=== PATIENT | female | born 1985 | race Caucasian/White ===

== ENCOUNTER 2024-03-21 07:51 | Emergency (ER) | payer OTHER, SELFPAY ==
[2024-03-21 07:55] VITALS: BP 159/87; PULSE 75; RESP 18; TEMP 36.8; O2SAT 97; BMI 30.9
[2024-03-21 08:00] VITALS: BP 159/87; PULSE 75; RESP 18; TEMP 36.8; O2SAT 97
--- NOTE | 2024-03-21 08:17 | XRR_ITS ---
PROCEDURE INFORMATION: Exam: XR Chest Exam date and time: 03/21/2024 8:25 AM Age: 38 years old Clinical indication: Cough and dyspnea; Additional info: Dyspnea/cough TECHNIQUE: Imaging protocol: Radiologic exam of the chest. Views: 1 view. COMPARISON: No relevant prior studies available. FINDINGS: Lungs: Unremarkable. No consolidation. Pleural spaces: Unremarkable. No pleural effusion. No pneumothorax. Heart/Mediastinum: Unremarkable. No cardiomegaly. Bones/joints: Unremarkable. XR/XR chest 1V portable [id number] IMPRESSION: No acute findings.
--- NOTE | 2024-03-21 08:17 | CT_ITS ---
WS: [id number] CT NECK TECHNIQUE: Contrast-enhanced CT of the neck with coronal and sagittal reformatted images. CLINICAL INFORMATION: Dental abscess with submandibular swelling COMPARISON: None. DLP: 255.[address] scans at [facility] use at least one of these dose optimization techniques: automated e xposure control; mA and/or kV adjustment per patient size (includes targeted exams where dose is matc hed to clinical indication); or iterative reconstruction. FINDINGS: Inflammatory stranding and edema in the floor of the mouth and about the LEFT mandible compatible wit h odontogenic cellulitis. No evidence of drainable abscess or fluid collection. Enhancing enlarged LE FT submandibular and LEFT perimandibular lymph nodes. Periapical lucency about a LEFT posterior molar . Periapical lucency about a RIGHT posterior molar. Normal posterior nasopharynx. Normal tonsils. No evidence of retropharyngeal abscess or fluid collect ion. Normal thyroid. Lung apices are well aerated. Straightening with slight reversal normal cervical lordosis. Moderate spondylitic changes cervical sp ine. CT/CT neck w con* [id number] IMPRESSION: 1. Inflammatory stranding and edema about the LEFT mandible compatible with ce llulitis. No evidence of drainable abscess or fluid collection. 2. Multiple enlarged enhancing lymph nodes in the LEFT submandibular space and about the angle of the mandible likely reactive. Recommend follow-up to resolu tion. 3. Inflammatory stranding and edema in the submandibular space and the floor o f the mouth. 4. Periapical lucency involving a LEFT posterior molar. No evidence of osteomy elitis. Notified Clay Johnson DO at 03/21/2024 9:58 AM.
--- NOTE | 2024-03-21 08:18 | ED_ITS ---
HPI - Dental/Oral 2 General: Chief complaint: Dental/Oral Stated complaint: mouth pain Time Seen by Provider: 03/21/24 08:05 Source: patient Mode of arrival: ambulatory History of Present Illness: 38-year-old female presents emergency ro om complaining of dental pain that began a couple of days ago. She is taken some amoxicillin she had available from her previous prescription. She has difficulty with chewing and swallowing overnight. Some swelling in the submandibular area. She denies vomiting or diarrhea subjective fever but not measured. Dysphagia. No stridor. Initial dental pain started on the left mandible. MD Complaint: tooth pain Teeth map: 1. Onset (ago): day(s) Associated symptoms: Denies fever(s) Review of Systems 2 Const: Denies: fever(s) or chills Card: Denies: chest pain Resp: Denies: dyspnea GI: Denies: abdominal pain : Denies: dysuria, urinary frequency or urinary urgency Musc: Denies: neck pain or back pain Skin/Breast: Denies: rash Physical Exam 2 Const: GENERAL APPEARANCE: cooperative and comfortable O RIENTATION/CONSCIOUSNESS: Yes awake, Yes oriented to person, Yes oriented to place and Yes oriented to time HENMT: COMMON NORMALS: hearing grossly normal bilaterally OTHER: Noticeable swelling in the submandibular space slightly more prominent on the left. Overlying skin is slightly reddened. Few cervical lymph nodes palpable. No stridor. Infected teeth of the premolar and molar. No active drainage there is swelling along the gumline. Teeth are eroded off to the level of the gumline. Resp: COMMON NORMALS: normal respiratory effort, No retractions, No use of accessory muscles and clear to auscultation bilaterally AUSCULTATION: clear to auscultation bilaterally Cardio: COMMON NORMALS: regular rate, regular rhythm and No murmurs present (Cardio) RATE: regular rate RHYTHM: regular rhythm GI: COMMON NORMALS: Soft to palpation and No hepatosplenomegaly present A USCULTATION: Yes normoactive bowel sounds PALPATION: Yes Soft to palpation, No Tenderness to palpation present (GI), No Guarding due to palpation present (GI) and Yes No hepatosplenomegaly present Extremity: COMMON NORMALS: normal to inspection, capillary refill normal, no clubbing, cyanosis or edema, no calf tenderness and no pedal edema Neuro: SENSORIUM/ORIENTATION: Yes oriented to person, Yes oriented to place and Yes oriented to time Skin: COMMON NORMALS: no rashes or lesions noted GENERAL SKIN EXAM: no rashes or lesions noted Course 2 Vital Signs: Vital signs: Vital Signs Temperature 98.2 F 03/21/24 08:00 Pulse Rate 82 03/21/24 12:15 Respiratory Rate 20 H 03/21/24 12:04 Blood Pressure 159/87 03/21/24 08:00 Pulse Oximetry 100 03/21/24 12:15 Oxygen Delivery Me thod Room Air 03/21/24 10:16 MDM - Dental/Oral Medical Decision Making Patient does have some swelling around the left side of the mandible and inferiorly. CT this soft tissues of the neck with IV contrast there is reactive lymph nodes but no delineated abscess. There is a lot of cellulitis most likely a dental genic at its source. There is no submandibular space invasion or abscess. Reviewed with radiologist. White count is elevated at 15. She was given a dose of Zosyn here. Will discharge patient from the ER and she will proceed directly to oral maxillary facial surgery. Talk to Dr. Interiano he recommended that he see her today and he can address the tooth issue that is present. The patient was asked not to eat or drink anything thing until she had seen Dr. Interiano. IV was left in place so that could be used for what ever procedures they do. Return if has further problems we did send in Augmentin and hydrocodone for her. Differential Diagnosis Likely dental caries Medical Records I reviewed the patient's medical records. Lab Data I reviewed the patient's lab results. 03/21/24 08:57 03/21/24 09:41 Radiology Impressions Chest X-Ray 03/21/24 08:17 IMPRESSION: No acute findings. Neck CT 03/21/24 08:17 IMPRESSION: 1. Inflammatory stranding and edema about the LEFT mandible compatible with cellulitis. No evidence of drainable abscess or fluid collection. 2. Multiple enlarged enhancing lymph nodes in the LEFT submandibular space and about the angle of the mandible likely reactive. Recommend follow-up to resolution. 3. Inflammatory stranding and edema in the submandibular space and the floor of the mouth. 4. Periapical lucency involving a LEFT posterior molar. No evidence of osteomyelitis. Notified Clay Johnson DO at 03/21/2024 9:58 AM. Laboratory Results WBC 15.25 10^3/uL (3.29-11.43) H 03/21/24 08:57 RBC 4.61 10^6/uL (3.85-5.65) 03/21/24 08:57 Hgb 12.40 g/dL (11.27-16.99) 03/21/24 08:57 Hct 38.5 % (36-47) 03/21/24 08:57 MCV 83.5 fl (85-98) L 03/21/24 08:57 MCH 26.9 pg (27-33) L 03/21/24 08:57 MCHC 32.2 g/dL (30-55) 03/21/24 08:57 RDW 16.7 % (12.1-15.1) H 03/21/24 08:57 Plt Count 455 10^3/cmm (157-399) H 03/21/24 08:57 MPV 10.7 fL (7.4-10.4) H 03/21/24 08:57 Neut % (Auto) 78.9 % 03/21/24 08:57 Lymph % (Auto) 12.0 % 03/21/24 08:57 Colbert % (Auto) 7.3 % 03/21/24 08:57 Eos % (Auto) 1.1 % 03/21/24 08:57 Baso % (Auto) 0.4 % 03/21/24 08:57 Neut # (Auto) 12.03 10^3/uL (1.8-7.7) H 03/21/24 08:57 Lymph # (Auto) 1.8 10^3/uL (0.8-4.8) 03/21/24 08:57 Colbert # (Auto) 1.1 10^3/uL (0.2-0.9) H 03/21/24 08:57 Eos # (Auto) 0.2 10^3/uL (0.0-0.8) 03/21/24 08:57 Baso # (Auto) 0.1 10^3/uL (0.0-0.1) 03/21/24 08:57 Nucleated RBC % (auto) 0 % 03/21/24 08:57 Nucleated RBCs # 0.0 /100WBC 03/21/24 08:57 Sodium 137 mmol/L (136-145) 03/21/24 09:41 Potassium 4.5 mmol/L (3.5-5.1) 03/21/24 09:41 Chloride 102 mmol/L (98-107) 03/21/24 09:41 Carbon Dioxide 25 mmol/L (22-29) 03/21/24 09:41 Anion Gap 14.5 (5-19) 03/21/24 09:41 BUN 8 mg/dL (6-20) 03/21/24 09:41 Creatinine 0.7 mg/dL (0.5-0.9) 03/21/24 09:41 GFR Calculation 93.6 mL/min (90-130) 03/21/24 09:41 Glucose 104 mg/dL (65-115) 03/21/24 09:41 Calculated Osmolality 283 mOsm/kg (285-295) L 03/21/24 09:41 Calcium 8.6 mg/dL (8.5-10.5) 03/21/24 09:41 Total Bilirubin 0.2 mg/dL (0.15-1.2) 03/21/24 09:41 AST 11 U/L (0-32) 03/21/24 09:41 ALT 12 U/L (0-33) 03/21/24 09:41 Alkaline Phosphatase 82 U/L (35-105) 03/21/24 09:41 Total Protein 7.3 g/dL (6.6-8.7) 03/21/24 09:41 Albumin 3.8 g/dL (3.5-5.2) 03/21/24 09:41 Globulin 3.5 g/dL (1.3-4.6) 03/21/24 09:41 All radiology interpretation(s) finalized by discharge Discharge Plan Discharge Patient Disposition: Home Clinical Impression: Dental caries Condition: Stable Prescriptions: New amoxicillin-pot clavulanate 875-125 mg tablet 1 tab PO BID Qty: 20 0RF hydrocodone-acetaminophen 5-325 mg tablet 1 tab PO Q6H PRN (Reason: pain) Qty: 15 0RF Discharge Orders: Discharge ED (Routine); Ordered 03/21/24 Ordered By: Clay Johnson Referrals: Tank Payne MD [Primary Care Provider] - Discharge Diet: Soft Mechanical Discharge Activity: Increase activity as tolerated Patient Instructions: Opioid Safety, Pain Management Activity Restrictions/Additional Instructions: You were seen today for dental abscess. Reviewed your CT films and discussed with oral maxillofacial surgery. They would like to see you immediately after you leave the emergency room. You should proceed directly from the ER to Dr. Interiano's office. You should not eat or drink anything after leaving here until you see him. Dr. Lane Interiano [address] [place] [id number] Phone:? tel: Fax:? Coding Level of Care Code ED Associate Curator for Micky Magaña
[2024-03-21] MEDS: iohexol 350 mg/mL 500 mL Btl (per mL) IV (09:16)
[2024-03-21 09:21] LABS: Basophils # 0.1 10^3/uL (0.0-0.1); Basophils % 0.4 %; Eosinophils # 0.2 10^3/uL (0.0-0.8); Eosinophils % 1.1 %; Hematocrit 38.5 % (36-47); Lymphocytes # 1.8 10^3/uL (0.8-4.8); Mean Corpuscular HGB Conc 32.2 g/dL (30-55); Mean Corpuscular Hemoglobin 26.9 pg (27-33); Mean Corpuscular Volume 83.5 fl (85-98); Mean Platelet Volume 10.7 fL (7.4-10.4); Monocytes # 1.1 10^3/uL (0.2-0.9); Monocytes % 7.3 %; Neutrophils # 12.03 10^3/uL (1.8-7.7); Neutrophils % 78.9 %; Nucleated Red Blood Cells % 0 %; Platelet Count 455 10^3/cmm (157-399); Red Blood Count 4.61 10^6/uL (3.85-5.65); Red Cell Distribution Width 16.7 % (12.1-15.1); White Blood Count 15.25 10^3/uL (3.29-11.43)
[2024-03-21 10:08] LABS: Alanine Aminotransferase 12 U/L (0-33); Albumin Level 3.8 g/dL (3.5-5.2); Alkaline Phosphatase 82 U/L (35-105); Anion Gap 14.5 (5-19); Aspartate Amino Transferase 11 U/L (0-32); Blood Urea Nitrogen 8 mg/dL (6-20); Calcium 8.6 mg/dL (8.5-10.5); Carbon Dioxide 25 mmol/L (22-29); Chloride 102 mmol/L (98-107); Creatinine Clr Calc Pharmacy 112.6391; Globulin 3.5 g/dL (1.3-4.6); Glomerular Filtration Rate 93.6 mL/min (90-130); Glucose 104 mg/dL (65-115); Osmolality Calculated 283 mOsm/kg (285-295); Potassium 4.5 mmol/L (3.5-5.1); Sodium 137 mmol/L (136-145); Total Bilirubin 0.2 mg/dL (0.15-1.2); Total Protein 7.3 g/dL (6.6-8.7)
[2024-03-21] MEDS: ondansetron 2 mg/ML SDV 2 mL 4 MG IVP (10:13)
[2024-03-21 10:14] VITALS: RESP 16
[2024-03-21] MEDS: morphine 4 mg/mL SDV 1 mL IVP ×2 (10:14→12:04)
[2024-03-21 10:16] VITALS: PULSE 68; O2SAT 95
[2024-03-21] MEDS: piperacillin-tazobactam 3.375 GM in sodium chloride 0.9% (plus) 50 ML IV (11:02)
[2024-03-21 12:04] VITALS: RESP 20
--- NOTE | 2024-03-21 12:12 | PC.NURSE ---
PER VERBAL ORDER FROM DR. PARKER, PATIENT WILL BE DC WITH IV IN PLACE GOING POV TO [facility] FOR SURGICAL PROCEDURE. PATIENT VERBALIZED UNDERSTANDING OF IV REMAINING IN PLACE, PATIENT UNDERSTANDS TO LEAVE IV INTACT AND TO NOT TAMPER WITH IV. PATIENT VERBALIZED UNDERSTANDING OF ADDRESS TO TRANSPORT TO. PATIENT IS ALERT AND ORIENTED AT TIME OF DISCUSSION.
--- NOTE | 2024-03-21 12:14 | PC.NURSE ---
PER VERBAL ORDER FROM DR. PARKER, ADMIN MORPHINE 4 MG TO PATIENT PRIOR TO DC POV TO [facility].
[2024-03-21 12:15] VITALS: PULSE 82; O2SAT 100
== END 2024-03-21 12:24 | disposition home or self-care (01) ==
PROVIDERS: Emergency Provider Family Medicine; PCP Family Medicine
DX: K02.9 Dental caries, unspecified (principal)
CPT/HCPCS: 70491; 71045; 80053; 85025; 87040; 96365; 96375; 96376; 99285; J2270; J2405; J2543; Q9967

== ENCOUNTER 2025-05-22 01:01 | Emergency (ER) | payer SELFPAY ==
[2025-05-22 01:07] VITALS: BP 115/82; PULSE 95; RESP 20; TEMP 36.6; O2SAT 98; BMI 36.0
--- NOTE | 2025-05-22 03:41 | CTR_ITS ---
PROCEDURE INFORMATION: Exam: CT Abdomen And Pelvis Without Contrast Exam date and time: 05/22/2025 4:17 AM Age: 39 years old Clinical indication: Abdominal pain; Right; C/O RT flank pain; Additional info: R flank pain TECHNIQUE: Imaging protocol: Computed tomography of the abdomen and pelvis without contrast. Radiation optimization: All CT scans at this facility use at least one of these dose optimization techniques: automated exposure control; mA and/or kV adjustment per patient size (includes targeted exams where dose is matched to clinical indication); or iterative reconstruction. COMPARISON: CR XR chest 1V portable [id number] 03/21/2024 8:25 AM RADIATION DOSE METRICS: Total DLP (mGy-cm): 914.03 FINDINGS: Lungs: There is linear scarring or atelectasis involving the right lung base and lingula. Liver: There is diffuse fatty infiltration of the liver. The liver is enlarged. The liver is otherwise normal. Gallbladder and biliary ducts: Normal. No calcified stones. No ductal dilation. Pancreas: Normal. No ductal dilation. Spleen: The spleen is slightly enlarged measuring 13.1 cm in maximal dimension. Adrenal glands: Normal. No mass. Kidneys and ureters: Normal. No hydronephrosis. Stomach and bowel: No dilated loops of large or small bowel is appreciated. No bowel wall thickening is noted. There is a moderate amount of stool within the ascending colon. Appendix: The appendix is not definitely identified. Intraperitoneal space: Unremarkable. No free air. No significant fluid collection. Vasculature: Unremarkable. No abdominal aortic aneurysm. Lymph nodes: Unremarkable. No enlarged lymph nodes. Urinary bladder: Unremarkable as visualized. Reproductive: Unremarkable as visualized. Bones/joints: Unremarkable. No acute fracture. Soft tissues: There is a fat filled periumbilical hernia. CT/CT kidney stone [id number] IMPRESSION: 1. Enlarged liver with fatty infiltration. 2. Slightly enlarged spleen. 3. Mild fecal stasis.
[2025-05-22 03:53] LABS: Hematocrit 36.7 % (36-47); Hemoglobin 11.30 g/dL (11.27-16.99); Mean Corpuscular HGB Conc 30.8 g/dL (30-55); Mean Corpuscular Hemoglobin 24.0 pg (27-33); Mean Corpuscular Volume 77.9 fl (85-98); Nucleated Red Blood Cells % 0 %; Platelet Count 460 10^3/cmm (157-399); Red Blood Count 4.71 10^6/uL (3.85-5.65); White Blood Count 11.74 10^3/uL (3.29-11.43)
[2025-05-22] MEDS: ondansetron 2 mg/ML SDV 2 mL 4 MG IVP (04:04)
[2025-05-22 04:05] LABS: HCG, Serum Qual Negative (Negative)
[2025-05-22 04:15] LABS: Alanine Aminotransferase 32 U/L (0-33); Albumin Level 4.4 g/dL (3.5-5.2); Alkaline Phosphatase 95 U/L (35-105); Anion Gap 15.9 (5-19); Aspartate Amino Transferase 23 U/L (0-32); Blood Urea Nitrogen 17 mg/dL (6-20); Calcium 9.5 mg/dL (8.5-10.5); Carbon Dioxide 24 mmol/L (22-29); Chloride 104 mmol/L (98-107); Creatinine Clr Calc Pharmacy 93.9602; Globulin 3.3 g/dL (1.3-4.6); Glucose 100 mg/dL (65-115); Lipase 22 U/L (13-60); Osmolality Calculated 292 mOsm/kg (285-295); Potassium 3.9 mmol/L (3.5-5.1); Sodium 140 mmol/L (136-145); Total Protein 7.7 g/dL (6.6-8.7)
--- NOTE | 2025-05-22 04:15 | W.ED.BACK ---
HPI - Back Pain/Injury General: Chief Complaint: Back Pain/Injury Stated Complaint: Back Pain Time Seen by Provider: 05/22/25 03:30 History of Present Illness: 39-year-old female presenting with sudden onset right-sided flank pain last night. She has been nauseated. No vomiting. It radiates towards her side, and into her pelvis. No dysuria. No known hematuria, although the patient is on her period and has had blood associated with urination. She is not . No numbness or tingling. No radicular pain down the legs. Related Data Previous Rx's ?Medication ?Instructions ?Recorded amoxicillin 875 mg-potassium 1 tab PO BID #20 tabs 03/21/24 clavulanate 125 mg tablet hydrocodone 5 mg-acetaminophen 325 1 tab PO Q6H PRN pain #15 tabs 03/21/24 mg tablet cefdinir 300 mg capsule 300 mg PO BID 7 days #14 caps 05/22/25 ketorolac 10 mg tablet 10 mg PO TID PRN pain #10 tabs 05/22/25 Allergies Allergy/AdvReac Type Severity Reaction Status Date / Time Sulfa (Sulfonamide Allergy ALGY-Rash Verified 03/21/24 07:58 Antibiotics) Physical Exam Const: GENERAL APPEARANCE: cooperative; not ill appearing and not frail appearing HENMT: COMMON NORMALS: normocephalic, atraumatic and Normal external nose present HEAD & SCALP: normocephalic and atraumatic FACE & SINUS: normal facial exam and face symmetric NOSE: Normal external nose present Eye: COMMON NORMALS: Equal, round and reactive pupils present and EOMs intact bilaterally PUPIL: Yes Equal, round and reactive pupils present Neck/C-Spine: GENERAL: Yes trachea midline Chest: CHEST: Yes Symmetrical chest wall rise Resp: COMMON NORMALS: normal respiratory effort, No retractions, No use of accessory muscles and clear to auscultation bilaterally AUSCULTATION: clear to auscultation bilaterally Cardio: COMMON NORMALS: regular rate and regular rhythm RATE: regular rate RHYTHM: regular rhythm GI: COMMON NORMALS: Normal to inspection, nondistended, normoactive bowel sounds present : BLADDER/KIDNEY EXAM: Yes CVA tenderness on the right Back/Pelvis: GENERAL BACK: Yes CVA tenderness Extremity: COMMON NORMALS: no pedal edema Neuro: BRAD COMA SCALE: document GCS findings Langeloth coma scale eye opening: Spontaneous [place]angel[place] coma scale verbal response: Orientated [place]angel[place] coma scale motor response: Obey commands Brad coma scale total score: 15 SENSORY EXAM: Yes extremities (intact) Psych: COMMON NORMALS: speech normal SPEECH: Yes normal speech Skin: COMMON NORMALS: no rashes or lesions noted GENERAL SKIN EXAM: no rashes or lesions noted Course Vital Signs: Vital signs: Vital Signs Temperature 97.8 F 05/22/25 01:07 Pulse Rate 75 05/22/25 06:29 Respiratory Rate 14 05/22/25 06:29 Blood Pressure 117/71 05/22/25 06:29 Pulse Oximetry 97 05/22/25 06:29 Oxygen Delivery Me thod Room Air 05/22/25 01:07 MDM - Back Pain/Injury Medical Decision Making Patient in significant pain. Morphine and Toradol were ordered. Patient refused morphine but took the Toradol. White blood cell count is 11.7 with 460 platelet count. Serum hCG is negative. Liver enzymes are normal. Urinalysis and CT stone protocol are pending. Urinalysis shows UTI finding without blood. No other cause of flank pain identified on CT scan. Pyelonephritis is most likely cause. will treat accordingly. return for worsening symptoms. Labs 05/22/25 03:27 05/22/25 03:27 Radiology Impressions Abdomen/Pelvis CT 05/22/25 03:41 IMPRESSION: 1. Enlarged liver with fatty infiltration. 2. Slightly enlarged spleen. 3. Mild fecal stasis. Laboratory Results WBC 11.74 10^3/uL (3.29-11.43) H 05/22/25 03:27 RBC 4.71 10^6/uL (3.85-5.65) 05/22/25 03:27 Hgb 11.30 g/dL (11.27-16.99) 05/22/25 03:27 Hct 36.7 % (36-47) 05/22/25 03:27 MCV 77.9 fl (85-98) L 05/22/25 03:27 MCH 24.0 pg (27-33) L 05/22/25 03:27 MCHC 30.8 g/dL (30-55) 05/22/25 03:27 RDW 17.7 % (12.1-15.1) H 05/22/25 03:27 Plt Count 460 10^3/cmm (157-399) H 05/22/25 03:27 MPV 9.3 fL (7.4-10.4) 05/22/25 03:27 Neut % (Auto) 70.1 % 05/22/25 03:27 Lymph % (Auto) 20.6 % 05/22/25 03:27 Rich % (Auto) 6.4 % 05/22/25 03:27 Eos % (Auto) 2.3 % 05/22/25 03:27 Baso % (Auto) 0.3 % 05/22/25 03:27 Neut # (Auto) 8.23 10^3/uL (1.8-7.7) H 05/22/25 03:27 Lymph # (Auto) 2.4 10^3/uL (0.8-4.8) 05/22/25 03:27 Rich # (Auto) 0.8 10^3/uL (0.2-0.9) 05/22/25 03:27 Eos # (Auto) 0.3 10^3/uL (0.0-0.8) 05/22/25 03:27 Baso # (Auto) 0.0 10^3/uL (0.0-0.1) 05/22/25 03:27 Nucleated RBC % (auto) 0 % 05/22/25 03:27 Nucleated RBCs # 0.0 /100WBC 05/22/25 03:27 Sodium 140 mmol/L (136-145) 05/22/25 03:27 Potassium 3.9 mmol/L (3.5-5.1) 05/22/25 03:27 Chloride 104 mmol/L (98-107) 05/22/25 03:27 Carbon Dioxide 24 mmol/L (22-29) 05/22/25 03:27 Anion Gap 15.9 (5-19) 05/22/25 03:27 BUN 17 mg/dL (6-20) 05/22/25 03:27 Creatinine 0.9 mg/dL (0.5-0.9) 05/22/25 03:27 GFR Calculation 69.7 mL/min (90-130) L 05/22/25 03:27 Glucose 100 mg/dL (65-115) 05/22/25 03:27 Calculated Osmolality 292 mOsm/kg (285-295) 05/22/25 03:27 Calcium 9.5 mg/dL (8.5-10.5) 05/22/25 03:27 Total Bilirubin 0.3 mg/dL (0.15-1.2) 05/22/25 03:27 AST 23 U/L (0-32) 05/22/25 03:27 ALT 32 U/L (0-33) 05/22/25 03:27 Alkaline Phosphatase 95 U/L (35-105) 05/22/25 03:27 C-Reactive Protein 31.5 mg/L (0.0-4.9) H 05/22/25 03:27 Total Protein 7.7 g/dL (6.6-8.7) 05/22/25 03:27 Albumin 4.4 g/dL (3.5-5.2) 05/22/25 03:27 Globulin 3.3 g/dL (1.3-4.6) 05/22/25 03:27 Lipase 22 U/L (13-60) 05/22/25 03:27 HCG, Qual Negative (Negative) 05/22/25 03:27 Urine Color Yellow (Yellow) 05/22/25 04:00 Urine Appearance Cloudy (CLEAR) A 05/22/25 04:00 Urine pH 6.0 (5-7) 05/22/25 04:00 Ur Specific [place] 1.026 (1.005-1.030) 05/22/25 04:00 Urine Protein Negative (Negative) 05/22/25 04:00 Urine Glucose (UA) Negative (Normal) 05/22/25 04:00 Urine Ketones Trace (Negative) 05/22/25 04:00 Urine Blood Negative (Negative) 05/22/25 04:00 Urine Nitrate Positive (Negative) A 05/22/25 04:00 Urine Bilirubin Negative (Negative) 05/22/25 04:00 Urine Urobilinogen 1.0 mg/dL (Negative) 05/22/25 04:00 Ur Leukocyte Esterase 1+ (Negative) A 05/22/25 04:00 Urine RBC 0-2 /hpf (0-2) 05/22/25 04:00 Urine WBC 11-20 /hpf (0-5) H 05/22/25 04:00 Ur Squamous Epith Cells 0-5 /hpf (0-5) 05/22/25 04:00 Amorphous Sediment Not Reportable 05/22/25 04:00 Urine Bacteria 4+ /hpf (NONE) H 05/22/25 04:00 Hyaline Casts 1.21 /lpf 05/22/25 04:00 Urine Opiates Screen Negative ng/mL (Negative) 05/22/25 04:00 Ur Barbiturates Screen Negative ng/mL (Negative) 05/22/25 04:00 Ur Phencyclidine Scrn Negative ng/mL (Negative) 05/22/25 04:00 Ur Amphetamines Screen Positive ng/mL (Negative) H 05/22/25 04:00 U Benzodiazepines Scrn Negative ng/mL (Negative) 05/22/25 04:00 Urine Cocaine Screen Negative ng/mL (Negative) 05/22/25 04:00 U Marijuana (THC) Screen Positive ng/mL (Negative) H 05/22/25 04:00 All radiology interpretation(s) finalized by discharge Discharge Plan Discharge Patient Disposition: Home Clinical Impression: Pyelonephritis Condition: Stable Prescriptions: New ketorolac 10 mg tablet 10 mg PO TID PRN (Reason: pain) Qty: 10 0RF cefdinir 300 mg capsule 300 mg PO BID 7 Days Qty: 14 0RF No Action amoxicillin-pot clavulanate 875-125 mg tablet 1 tab PO BID Qty: 20 0RF hydrocodone-acetaminophen 5-325 mg tablet 1 tab PO Q6H PRN (Reason: pain) Qty: 15 0RF Discharge Orders: Discharge ED (Routine); Ordered 05/22/25 Ordered By: Mukund Bhatti Referrals: Tank Payne MD [Primary Care Provider, [facility]] - 4-7 days Patient Instructions: Kidney Infection (ED), Opioid Safety, Pain Management, Patient Portal & Chay Instructions Activity Restrictions/Additional Instructions: Return for fever greater than 100 ?F despite 2-3 more doses of antibiotics, worsening pain despite treatment, vomiting liquids or medications, other concerning symptoms. Call your doctor later this morning for follow-up appointment later this week. Your urine will need to be retested to ensure you are clearing the infection Print Language: Chinese Coding Level of Care Code ED Chemical Compounder Helper for Micky Magaña
[2025-05-22 04:16] LABS: Glucose Urine UA Negative (Normal); Nitrate Urine Positive (Negative); Specific Gravity, Urine 1.026 (1.005-1.030)
[2025-05-22 04:21] LABS: Add Urine Microscopic? YES
[2025-05-22] MEDS: cefTRIAXone 1,000 mg SDV 1000 MG IVP (04:58)
[2025-05-22 05:43] LABS: PCP Screen Urine Negative (Negative)
[2025-05-22 06:29] VITALS: BP 117/71; PULSE 75; RESP 14; O2SAT 97
--- OUTSIDE RECORDS SUMMARY | 2025-05-24 08:01 | XMS_ITS | Encounter Summary ---
Author Organization [employer] [facility] Address [address] [place] [address] Care Team Providers Care Corporate Development Officer Name Role Phone Unavailable Primary Care Provider Unavailabl e Encounter Details Date Type Department Care Team (Latest Contact Info) Description 09/26/1997 Outpatient Historical [facility] Tank Prasad MD NO ADDRESS ON FILE Closed fracture of unspecified part of radius with ulna(813.83) (Primary Dx) Social History Tobacco Use Types Packs/Day Years Used Date Smoking Tobacco: Never Assessed Comments Unknown Sex and Gender Information Value Date Recorded Sex Assigned at Not on file 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
--- OUTSIDE RECORDS SUMMARY | 2025-05-24 08:01 | XMS_ITS | Encounter Summary ---
Author Organization [employer] [facility] Address [address] [place] [address] Care Team Providers Care Band Cutting Machine Operator Name Role Phone Unavailable Primary Care Provider Unavailabl e Encounter Details Date Type Department Care Team (Latest Contact Info) Description 10/23/1997 Outpatient Historical HIS [facility] Tank Prasad MD NO ADDRESS ON FILE Closed fracture of unspecified part of radius with ulna(813.83) (Primary Dx) Social History Tobacco Use Types Packs/Day Years Used Date Smoking Tobacco: Never Assessed Comments Unknown Sex and Gender Information Value Date Recorded Sex Assigned at Not on file 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
--- OUTSIDE RECORDS SUMMARY | 2025-05-24 08:01 | XMS_ITS | Encounter Summary ---
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
--- OUTSIDE RECORDS SUMMARY | 2025-05-24 08:01 | XMS_ITS | Clinical Summary ---
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
--- OUTSIDE RECORDS SUMMARY | 2025-05-24 08:01 | XMS_ITS | Encounter Summary ---
Author Organization [facility] Address [address] [place] [address] Care Team Providers Care Sales Account Leader Name Role Phone Unavailable Primary Care Provider Unavailabl e Encounter Details Date Type Department Care Team (Latest Contact Info) Description 03/31/2005 Outpatient Historical [facility] Oral and Maxillo Surgery- [address] [place] [id number] Vicente Hayes, DDS [address] [place] [id number] SURGERY FOLLOWUP, UNSPEC (Primary Dx) Social History Tobacco Use Types Packs/Day Years Used Date Smoking Tobacco: Never Assessed Comments Unknown Sex and Gender Information Value Date Recorded Sex Assigned at Not on file 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
== END 2025-05-22 06:31 | disposition home or self-care (01) ==
PROVIDERS: Emergency Provider Emergency Medicine; PCP Family Medicine
DX: N12 Tubulo-interstitial nephritis, not specified as acute or chronic (principal)
CPT/HCPCS: 74176; 80053; 80306; 81001; 83690; 84703; 85025; 86140; 96361; 96374; 96375; 99285; J0696; J1885; J2405; J7030